=== PATIENT | male | born 1995 | race Caucasian/White ===

== ENCOUNTER 2017-07-08 15:44 | Inpatient (IN) | payer OTHER ==
[2017-07-08 17:43] VITALS: BMI 17.1
--- NOTE | 2017-07-08 19:08 | HP ---
COWS - Scale Resting Pulse: 0= [place] 80 or Below Sweatin= Chills/Flushing Restless Observation: 1= Difficult to Sit Still Pupil Size: 0= Normal to Room Light Bone or Joint Aches: 2= Severe Diffuse Aches Runny Nose/ Eye Tearin= Runny Nose/Eyes GI Upset > 30mins: 2= Nausea/Diarrhea Tremor Observation: 2= Slight Tremor Visible Yawning Observation: 1= 1-2x During Session Anxiety or Irritability: 2=Irritable/Anxious Goose Flesh Skin: 0=Smooth Skin COWS Score: 13 Admission ROS S - [facility] Chief Complaint: withdrawal sx Allergies/Adverse Reactions: Allergies Allergy/AdvReac Type Severity Reaction Status Date / Time No Known Allergies Allergy Verified 07/08/17 19:06 History of Present Illness: 22 years old male with long history of opiate nicotine dependence has asthma last episode 11 years old, chronic back pain treated with flexeril denies mental illness is admitted to detox Exam Limitations: No Limitations - Ebola screening Have you traveled outside of the country in the last 21 days: No Have you had contact with anyone from an Ebola affected area: No Have you been sick,other than usual withdrawal symptoms: No Do you have a fever: No - Review of Systems Constitutional: Changes in sleep, Weight Stable EENT: reports: No Symptoms Reported Respiratory: reports: No Symptoms reported Cardiac: reports: No Symptoms Reported GI: reports: Diarrhea, Nausea, Poor Fluid Intake, Abdominal cramping : reports: No Symptoms Reported Musculoskeletal: reports: Back Pain, Joint Pain, Muscle Pain, Neck Pain Integumentary: reports: Change in Color (inner elbows) Neuro: reports: Tremors Endocrine: reports: No Symptoms Reported Hematology: reports: No Symptoms Reported Psychiatric: reports: Judgement Intact, Mood/Affect Appropiate, Orientated x3 Other Systems: Reviewed and Negative Patient History - Patient Medical History Hx Anemia: No Hx Asthma: Yes (as chilc) Hx Chronic Obstructive Pulmonary Disease (COPD): No Hx Cancer: No Hx Cardiac Disorders: No Hx Congestive Heart Failure: No Hx Hypertension: No Hx Hypercholesterolemia: No Hx Pacemaker: No HX Cerebrovascular Accident: No Hx Seizures: No Hx Dementia: No Hx Diabetes: No Hx Gastrointestinal Disorders: No Hx Liver Disease: No Hx Genitourinary Disorders: No Hx Sexually Transmitted Disorders: No Hx Renal Disease (ESRD): No Hx Thyroid Disease: No Hx Human Immunodeficiency Virus (HIV): No Hx Hepatitis C: No Hx Depression: No Hx Suicide Attempt: No Hx Bipolar Disorder: No Hx Schizophrenia: No - Patient Surgical History Past Surgical History: No - PPD History Previous Implant?: Yes Documented Results: Negative w/o proof Implanted On Prior [facility] Admission?: No PPD to be Administered?: Yes - Smoking Cessation Smoking history: Current every day smoker Have you smoked in the past 12 months: Yes Aproximately how many cigarettes per day: 20 Cigars Per Day: 0 Hx Chewing Tobacco Use: No Initiated information on smoking cessation: Yes 'Breaking Loose' booklet given: 07/08/17 - Substance & Tx. History Hx Alcohol Use: No Hx Substance Use: Yes Substance Use Type: Marijuana, Opiates Hx Substance Use Treatment: Yes (04/2017 [facility]) - Substances Abused Heroin Route: Injection Frequency: Daily Amount used: 40 bags Age of first use: 19 Date of Last Use: 07/08/17 Marijuana/Hashish Route: Smoking Frequency: 3-6 times per week Amount used: 1 oz Age of first use: 15 Date of Last Use: 07/06/17 Family Disease History - Family Disease History Family Disease History: Other: Father (hiv) Admission Physical Exam [facility] - Vital Signs Vital Signs: Vital Signs - 24 hr 07/08/17 17:40 Temperature 97.4 F L Pulse Rate 69 Respiratory 20 Rate Blood Pressure 113/53 - Physical General Appearance: Yes: Appropriately Dressed, Mild Distress, Thin, Tremorous, Irritable, Sweating, Anxious HEENTM: Yes: Hearing grossly Normal, Normal ENT Inspection, Normocephalic, Normal Voice Respiratory: Yes: Chest Non-Tender, Lungs Clear, Normal Breath Sounds, No Respiratory Distress, No Accessory Muscle Use Neck: Yes: Supple, Trachea in good position Breast: Yes: Breasts Symetrical Cardiology: Yes: Regular Rhythm, Regular Rate, S1, S2 Abdominal: Yes: Non Tender, Soft, Increased Bowel Sounds Genitourinary: Yes: Within Normal Limits Back: Yes: Normal Inspection Musculoskeletal: Yes: full range of Motion, Gait Steady, Back pain Extremities: Yes: Normal Inspection, Normal Range of Motion, Non-Tender, Tremors Neurological: Yes: Fully Oriented, Alert, Motor Strength 5/5, Normal Mood/Affect , Normal Response Integumentary: Yes: Warm, Track Thao Lymphatic: Yes: Within Normal Limits - Diagnostic (1) Opioid dependence with withdrawal Current Visit: Yes Status: Acute (2) Cannabis dependence, uncomplicated Current Visit: Yes Status: Chronic (3) Nicotine dependence Current Visit: Yes Status: Acute Qualifiers: Nicotine product type: cigarettes Substance use status: in withdrawal Qualified Code(s): F17.213 - Nicotine dependence, cigarettes, with withdrawal (4) Chronic back pain Current Visit: Yes Status: Chronic Qualifiers: Back pain location: low back pain Back pain laterality: bilateral Sciatica presence: without sciatica Qualified Code(s): M54.5 - Low back pain; G89.29 - Other chronic pain (5) Chronic neck pain Current Visit: Yes Status: Chronic Cleared for Admission [facility] - Detox or Rehab [facility] Level of Care: Medically Managed Detox Regimen/Protocol: Methadone [facility] Breath Alcohol Content Breath Alcohol Content: 0 Urine Drug Screen - Results Drug Screen Negative: No Urine Drug Screen Results: THC-Marijuana, OPI-Opiates, MTD-Methadone
[2017-07-08] MEDS ORDERED: MAGNESIUM CITRATE 300 ML BOTTLE PO PRN (19:17)
[2017-07-08] MEDS ORDERED: guaiFENesin/D-METHORPHAN HB 10 ML UNIT-DOSE CUPS PO PRN (19:17)
[2017-07-08] MEDS ORDERED: IBUPROFEN 400 MG TABLET (FP) PO PRN (19:17)
[2017-07-08] MEDS ORDERED: METHADONE HCL 10 MG TABLET (FOR DETOX USE ONLY) PO ONE ×2 (19:17→23:00)
[2017-07-08] MEDS ORDERED: LOPERAMIDE HCL 2 MG CAPSULE PO PRN (19:17)
[2017-07-08] MEDS ORDERED: diphenhydrAMINE HCL 50 MG CAPSULE PO PRN (19:17)
[2017-07-08] MEDS ORDERED: ACETAMINOPHEN 325 MG TABLET (FP) PO PRN (19:17)
[2017-07-08] MEDS ORDERED: MENTHOL/PHENOL 1 EACH UD MM PRN (19:17)
[2017-07-08] MEDS ORDERED: MAG HYDROX/AL HYDROX/SIMETH 30 ML UNIT-DOSE CUP PO PRN (19:17)
[2017-07-08] MEDS ORDERED: NICOTINE POLACRILEX 4 MG GUM BUC PRN (19:17)
[2017-07-08] MEDS ORDERED: P-EPHED 60MG/TRIPROLIDI 2.5MG TABLET PO PRN (19:17)
[2017-07-08] MEDS ORDERED: MAGNESIUM HYDROX 2400MG/30ML ORAL SUSPENSION 30 ML CUP PO PRN (19:17)
[2017-07-08] MEDS ORDERED: METHADONE HCL 10 MG TABLET (FOR DETOX USE ONLY) ONE (21:32)
[2017-07-08] MEDS: diazePAM 5 MG TABLET PO PRN (21:36)
[2017-07-08] MEDS: THIAMINE HCL 100 MG TABLET (FP) PO SCH (21:37)
[2017-07-08] MEDS: CYCLOBENZAPRINE HCL 10 MG TABLET (FP) PO PRN (21:42)
[2017-07-08] MEDS: METHYL SALICYLATE/MENTHOL OINT 30 GM TUBE TP SCH (23:16)
[2017-07-09] MEDS ORDERED: METHADONE HCL 10 MG TABLET (FOR DETOX USE ONLY) PO ONE (10:00)
[2017-07-09 10:08] LABS: MCH 28.9 pg (25.7-33.7); MCHC 32.8 g/dl (32.0-35.9); MEAN CELL VOLUME 88.3 fl (80-96); MEAN PLT VOLUME 9.7 fl (7.5-11.1); PLATELET COUNT 185 K/MM3 (134-434); RDW 12.6 % (11.9-15.9); WHITE BLOOD COUNT 7.2 K/mm3 (4.0-10.0)
[2017-07-09 10:24] LABS: ALBUMIN 3.4 g/dl (3.4-5.0); ALK PHOS 90 U/L (45-117); ANION GAP 6 (8-16); BILIRUBIN,TOTAL 0.5 mg/dL (0.2-1.0); CALCIUM 8.9 mg/dL (8.5-10.1); CO2 32 mmol/L (21-32); CREATININE 0.6 mg/dL (0.7-1.3); GLUCOSE,RANDOM 84 mg/dL (74-106); SGOT/AST 14 U/L (15-37); SGPT/ALT 15 U/L (12-78); TOT PROT 6.2 g/dl (6.4-8.2)
[2017-07-09] MEDS: PRENATAL VITAMINS W/ FOLIC ACID TABLET (FP) PO SCH (10:53)
[2017-07-09] MEDS: METHYL SALICYLATE/MENTHOL OINT 30 GM TUBE TP SCH (10:53)
[2017-07-09] MEDS: NICOTINE 21 MG/24 HOURS TOPICAL PATCH TD SCH (10:54)
[2017-07-09] MEDS: diazePAM 5 MG TABLET PO PRN ×3 (10:55→20:40)
--- NOTE | 2017-07-09 11:15 | EKG ---
Test Reason : Blood Pressure : / mmHG Vent. Rate : 070 BPM Atrial Rate : 070 BPM P-R Int : 132 ms QRS Dur : 092 ms QT Int : 398 ms P-R-T Axes : 067 041 071 degrees QTc Int : 429 ms SINUS RHYTHM WITH MARKED SINUS ARRHYTHMIA OTHERWISE NORMAL ECG NO PREVIOUS ECGS AVAILABLE Confirmed by NELLY CARLOS, KOMAL ([id number]) on 07/09/2017 11:14:38 AM Referred By: Confirmed By:KOMAL VILLEGAS MD
--- NOTE | 2017-07-09 12:15 | PN ---
BHS COWS - Scale Resting Pulse: 1= [place] 81-100 Sweatin= Chills/Flushing Restless Observation: 3= Extraneous Movement Pupil Size: 2= Moderately Dilated Bone or Joint Aches: 4=Acute Joint/Muscle Pain Runny Nose/ Eye Tearin= Nasal Congestion GI Upset > 30mins: 1= Stomach Cramp Tremor Observation of Outstretched Hands: 4= Gross Tremor/Twitching Yawning Observation: 1= 1-2x During Session Anxiety or Irritability: 2=Irritable/Anxious Goose Flesh Skin: 0=Smooth Skin COWS Score: 20 S Progress Note (SOAP) Subjective: ANXIETY,IRRITABILITY,INTERMITTENT SLEEP. Objective: 07/09/17 12:15 Vital Signs Temperature 98.0 F 07/09/17 10:22 Pulse Rate 81 07/09/17 10:22 Respiratory Rate 20 07/09/17 10:22 Blood Pressure 121/69 07/09/17 10:22 O2 Sat by Pulse Oximetry (%) Laboratory Last Values WBC 7.2 K/mm3 (4.0-10.0) 07/09/17 07:00 RBC 4.44 M/mm3 (4.00-5.60) 07/09/17 07:00 Hgb 12.9 GM/dL (11.7-16.9) 07/09/17 07:00 Hct 39.3 % (35.4-49) 07/09/17 07:00 MCV 88.3 fl (80-96) 07/09/17 07:00 MCH 28.9 pg (25.7-33.7) 07/09/17 07:00 MCHC 32.8 g/dl (32.0-35.9) 07/09/17 07:00 RDW 12.6 % (11.9-15.9) 07/09/17 07:00 Plt Count 185 K/MM3 (134-434) 07/09/17 07:00 MPV 9.7 fl (7.5-11.1) 07/09/17 07:00 Sodium 143 mmol/L (136-145) 07/09/17 07:00 Potassium 4.2 mmol/L (3.5-5.1) 07/09/17 07:00 Chloride 105 mmol/L (98-107) 07/09/17 07:00 Carbon Dioxide 32 mmol/L (21-32) 07/09/17 07:00 Anion Gap 6 (8-16) L 07/09/17 07:00 BUN 11 mg/dL (7-18) 07/09/17 07:00 Creatinine 0.6 mg/dL (0.7-1.3) L 07/09/17 07:00 Creat Clearance w eGFR > 60 (>60) 07/09/17 07:00 Random Glucose 84 mg/dL (74-106) 07/09/17 07:00 Calcium 8.9 mg/dL (8.5-10.1) 07/09/17 07:00 Total Bilirubin 0.5 mg/dL (0.2-1.0) 07/09/17 07:00 AST 14 U/L (15-37) L 07/09/17 07:00 ALT 15 U/L (12-78) 07/09/17 07:00 Alkaline Phosphatase 90 U/L (45-117) 07/09/17 07:00 Total Protein 6.2 g/dl (6.4-8.2) L 07/09/17 07:00 Albumin 3.4 g/dl (3.4-5.0) 07/09/17 07:00 Assessment: 07/09/17 12:15 WITHDRAWAL SX Plan: CONTINUE DETOX
[2017-07-09] MEDS ORDERED: diphenhydrAMINE HCL 50 MG CAPSULE PO PRN (12:16)
[2017-07-09 17:16] LABS: URINE APPEARANCE SLCLOUDY; URINE BILIRUBIN NEGATIVE (NEGATIVE); URINE BLOOD NEGATIVE (NEGATIVE); URINE COLOR YELLOW; URINE GLUCOSE (UA) NEGATIVE (NEGATIVE); URINE KETONE NEGATIVE (NEGATIVE); URINE LEUK ESTERASE NEGATIVE (NEGATIVE); URINE NITRITE NEGATIVE (NEGATIVE); URINE PROTEIN NEGATIVE (NEGATIVE); URINE UROBILINOGEN NEGATIVE mg/dL (0.2-1.0)
[2017-07-09] MEDS: THIAMINE HCL 100 MG TABLET (FP) PO SCH (22:55)
[2017-07-10] MEDS: diazePAM 5 MG TABLET PO PRN ×4 (05:30→22:48)
[2017-07-10] MEDS ORDERED: METHADONE HCL 5 MG TABLET (FOR DETOX USE ONLY) PO ONE (10:00)
[2017-07-10] MEDS: PRENATAL VITAMINS W/ FOLIC ACID TABLET (FP) PO SCH (10:41)
[2017-07-10] MEDS: METHYL SALICYLATE/MENTHOL OINT 30 GM TUBE TP SCH (10:41)
[2017-07-10] MEDS: NICOTINE 21 MG/24 HOURS TOPICAL PATCH TD SCH (10:42)
--- NOTE | 2017-07-10 12:28 | PN ---
BHS COWS - Scale Resting Pulse: 0= [place] 80 or Below Sweatin= Chills/Flushing Restless Observation: 3= Extraneous Movement Pupil Size: 2= Moderately Dilated Bone or Joint Aches: 4=Acute Joint/Muscle Pain Runny Nose/ Eye Tearin= Nasal Congestion GI Upset > 30mins: 1= Stomach Cramp Tremor Observation of Outstretched Hands: 1= Tremor [place], Not Seen Yawning Observation: 1= 1-2x During Session Anxiety or Irritability: 2=Irritable/Anxious Goose Flesh Skin: 0=Smooth Skin COWS Score: 16 S Progress Note (SOAP) Subjective: ANXIETY,SWEATS,TREMORS,INTERMITTENT SLEEP Objective: 07/10/17 12:27 Vital Signs Temperature 97.7 F 07/10/17 10:40 Pulse Rate 77 07/10/17 10:40 Respiratory Rate 18 07/10/17 10:40 Blood Pressure 119/63 07/10/17 10:40 O2 Sat by Pulse Oximetry (%) Laboratory Last Values WBC 7.2 K/mm3 (4.0-10.0) 07/09/17 07:00 RBC 4.44 M/mm3 (4.00-5.60) 07/09/17 07:00 Hgb 12.9 GM/dL (11.7-16.9) 07/09/17 07:00 Hct 39.3 % (35.4-49) 07/09/17 07:00 MCV 88.3 fl (80-96) 07/09/17 07:00 MCH 28.9 pg (25.7-33.7) 07/09/17 07:00 MCHC 32.8 g/dl (32.0-35.9) 07/09/17 07:00 RDW 12.6 % (11.9-15.9) 07/09/17 07:00 Plt Count 185 K/MM3 (134-434) 07/09/17 07:00 MPV 9.7 fl (7.5-11.1) 07/09/17 07:00 Sodium 143 mmol/L (136-145) 07/09/17 07:00 Potassium 4.2 mmol/L (3.5-5.1) 07/09/17 07:00 Chloride 105 mmol/L (98-107) 07/09/17 07:00 Carbon Dioxide 32 mmol/L (21-32) 07/09/17 07:00 Anion Gap 6 (8-16) L 07/09/17 07:00 BUN 11 mg/dL (7-18) 07/09/17 07:00 Creatinine 0.6 mg/dL (0.7-1.3) L 07/09/17 07:00 Creat Clearance w eGFR > 60 (>60) 07/09/17 07:00 Random Glucose 84 mg/dL (74-106) 07/09/17 07:00 Calcium 8.9 mg/dL (8.5-10.1) 07/09/17 07:00 Total Bilirubin 0.5 mg/dL (0.2-1.0) 07/09/17 07:00 AST 14 U/L (15-37) L 07/09/17 07:00 ALT 15 U/L (12-78) 07/09/17 07:00 Alkaline Phosphatase 90 U/L (45-117) 07/09/17 07:00 Total Protein 6.2 g/dl (6.4-8.2) L 07/09/17 07:00 Albumin 3.4 g/dl (3.4-5.0) 07/09/17 07:00 Urine Color Yellow 07/09/17 14:22 Urine Appearance Slcloudy 07/09/17 14:22 Urine pH 8.0 (5.0-8.0) 07/09/17 14:22 Ur Specific [place] 1.020 (1.005-1.025) 07/09/17 14:22 Urine Protein Negative (NEGATIVE) 07/09/17 14:22 Urine Glucose (UA) Negative (NEGATIVE) 07/09/17 14:22 Urine Ketones Negative (NEGATIVE) 07/09/17 14:22 Urine Blood Negative (NEGATIVE) 07/09/17 14:22 Urine Nitrite Negative (NEGATIVE) 07/09/17 14:22 Urine Bilirubin Negative (NEGATIVE) 07/09/17 14:22 Urine Urobilinogen Negative mg/dL (0.2-1.0) 07/09/17 14:22 Ur Leukocyte Esterase Negative (NEGATIVE) 07/09/17 14:22 RPR Titer Nonreactive (NONREACTIVE) 07/09/17 07:00 Hepatitis C Antibody <0.1 s/co ratio (0.0-0.9) 07/08/17 07:00 Assessment: 07/10/17 12:27 WITHDRAWAL SX Plan: CONTINUE DETOX
[2017-07-10] MEDS: THIAMINE HCL 100 MG TABLET (FP) PO SCH (22:48)
[2017-07-11] MEDS: diazePAM 5 MG TABLET PO PRN ×3 (05:58→14:32)
[2017-07-11] MEDS ORDERED: METHADONE HCL 5 MG TABLET (FOR DETOX USE ONLY) PO ONE (10:00)
[2017-07-11] MEDS ORDERED: METHADONE HCL 10 MG TABLET (FOR DETOX USE ONLY) PO ONE (10:00)
[2017-07-11] MEDS: PRENATAL VITAMINS W/ FOLIC ACID TABLET (FP) PO SCH (10:21)
[2017-07-11] MEDS: METHYL SALICYLATE/MENTHOL OINT 30 GM TUBE TP SCH (10:22)
[2017-07-11] MEDS: NICOTINE 21 MG/24 HOURS TOPICAL PATCH TD SCH (10:22)
[2017-07-11] MEDS: CYCLOBENZAPRINE HCL 10 MG TABLET (FP) PO PRN (14:35)
--- NOTE | 2017-07-11 15:05 | PN ---
BHS Progress Note (SOAP) Subjective: Tremors. Objective: PT. A & O X 3, OBSERVED AMBULATING ON UNIT. NO ACUTE DISTRESS. 07/11/17 15:02 Vital Signs Temperature 98.4 F 07/11/17 09:34 Pulse Rate 84 07/11/17 09:34 Respiratory Rate 18 07/11/17 09:34 Blood Pressure 107/61 07/11/17 09:34 O2 Sat by Pulse Oximetry (%) Laboratory Tests 07/08/17 07/09/17 07/09/17 07:00 07:00 07:00 WBC 7.2 RBC 4.44 Hgb 12.9 Hct 39.3 MCV 88.3 MCH 28.9 MCHC 32.8 RDW 12.6 Plt Count 185 MPV 9.7 Sodium 143 Potassium 4.2 Chloride 105 Carbon Dioxide 32 Anion Gap 6 L BUN 11 Creatinine 0.6 L Creat Clearance w eGFR > 60 Random Glucose 84 Calcium 8.9 Total Bilirubin 0.5 AST 14 L ALT 15 Alkaline Phosphatase 90 Total Protein 6.2 L Albumin 3.4 Urine Color Urine Appearance Urine pH Ur Specific [place] Urine Protein Urine Glucose (UA) Urine Ketones Urine Blood Urine Nitrite Urine Bilirubin Urine Urobilinogen Ur Leukocyte Esterase RPR Titer Hepatitis C Antibody <0.1 07/09/17 07/09/17 07:00 14:22 WBC RBC Hgb Hct MCV MCH MCHC RDW Plt Count MPV Sodium Potassium Chloride Carbon Dioxide Anion Gap BUN Creatinine Creat Clearance w eGFR Random Glucose Calcium Total Bilirubin AST ALT Alkaline Phosphatase Total Protein Albumin Urine Color Yellow Urine Appearance Slcloudy Urine pH 8.0 Ur Specific [place] 1.020 Urine Protein Negative Urine Glucose (UA) Negative Urine Ketones Negative Urine Blood Negative Urine Nitrite Negative Urine Bilirubin Negative Urine Urobilinogen Negative Ur Leukocyte Esterase Negative RPR Titer Nonreactive Hepatitis C Antibody LABS NOTED. Assessment: 07/11/17 15:03 WITHDRAWAL SYMPTOMS. Plan: CONTINUE DETOX. PATIENT REPORTING THAT CURRENT DETOX SYMPTOMS ARE MINIMAL AND THAT HE FEELS WELL OVERALL. AT PATIENT'S REQUEST, DETOX REGIMEN (METHADONE) SCHEDULE CHANGED SO THAT PATIENT MAY BE DISCHARGED ON 07/12/2017.
[2017-07-11 15:37] VITALS: BP 111/66; PULSE 94; TEMP 97
--- NOTE | 2017-07-11 17:51 | PN ---
S Progress Note Note: called by nurse stated that patient did not want to complete treatment,seen by counselor,did not want to wait,signed release ama
--- NOTE | 2017-07-11 17:57 | DS ---
[facility] Detox Discharge Summary Admission Date: 07/08/17 Discharge Date: 07/11/17 - History Present History: Cannabis Dependence, Opioid Dependence Additional Comments: patient did not want to complete treatment,signed release ama,did not want to wait Pertinent Past History: chronic back pain chronic neck pain - Physical Exam Results Vital Signs: Vital Signs Temperature 97 F L 07/11/17 15:37 Pulse Rate 94 H 07/11/17 15:37 Respiratory Rate 18 07/11/17 15:37 Blood Pressure 111/66 07/11/17 15:37 O2 Sat by Pulse Oximetry (%) Pertinent Admission Physical Exam Findings: withdrawal symptom - Medication Discharge Medications: Ambulatory Orders NK [No Known Home Medication] 07/08/17 - Diagnosis (1) Nicotine dependence Current Visit: Yes Status: Acute Qualifiers: Nicotine product type: cigarettes Substance use status: in withdrawal Qualified Code(s): F17.213 - Nicotine dependence, cigarettes, with withdrawal (2) Opioid dependence with withdrawal Current Visit: Yes Status: Acute (3) Cannabis dependence, uncomplicated Current Visit: Yes Status: Chronic (4) Chronic back pain Current Visit: Yes Status: Chronic Qualifiers: Back pain location: low back pain Back pain laterality: bilateral Sciatica presence: without sciatica Qualified Code(s): M54.5 - Low back pain; G89.29 - Other chronic pain (5) Chronic neck pain Current Visit: Yes Status: Chronic - AMA Did Patient Leave Against Medical Advice: Yes
[2017-07-12] MEDS ORDERED: METHADONE HCL 5 MG TABLET (FOR DETOX USE ONLY) PO ONE (06:00)
[2017-07-12] MEDS ORDERED: METHADONE HCL 10 MG TABLET (FOR DETOX USE ONLY) PO ONE (10:00)
[2017-07-13] MEDS ORDERED: METHADONE HCL 5 MG TABLET (FOR DETOX USE ONLY) PO ONE (06:00)
== END 2017-07-11 17:20 | disposition left against medical advice (07) | DRG 770 ==
LOC: YASAS 15:44 → Y3N 19:27
PROVIDERS: ADMIT Internal Medicine; ATTEND Internal Medicine
PROC: HZ2ZZZZ Detoxification Services for Substance Abuse Treatment (ICD-10-PCS; principal; 2017-07-11)
DX: F11.23 Opioid dependence with withdrawal (principal); F12.20 Cannabis dependence, uncomplicated; F17.213 Nicotine dependence, cigarettes, with withdrawal; M54.5 Low back pain; M54.2 Cervicalgia; G89.29 Other chronic pain
CPT/HCPCS: 36415; 80053; 81003; 85027; 86593; 86803; 93005; 93010

== ENCOUNTER 2017-12-25 14:04 | Inpatient (IN) | payer OTHER ==
[2017-12-25 17:07] VITALS: BMI 19.5
--- NOTE | 2017-12-25 18:07 | HP ---
COWS - Scale Resting Pulse: 0= [place] 80 or Below Sweatin= Chills/Flushing Restless Observation: 1= Difficult to Sit Still Pupil Size: 1= Pupils >than Normal Bone or Joint Aches: 1= Mild Discomfort Runny Nose/ Eye Tearin= Nasal Congestion GI Upset > 30mins: 1= Stomach Cramp Tremor Observation: 2= Slight Tremor Visible Yawning Observation: 1= 1-2x During Session Anxiety or Irritability: 2=Irritable/Anxious Goose Flesh Skin: 3=Piloe[place] COWS Score: 14 CIWA Score - CIWA Score Nausea/Vomitin Muscle Tremors: 3 Anxiety: 3 Agitation: 3 Paroxysmal Sweats: 3 Orientation: 0-Oriented Tacttile Disturbances: 0-None Auditory Disturbances: 0-None Visual Disturbances: 0-None Headache: 0-None Present CIWA-Ar Total Score: 15 Admission ROS S - HPI Chief Complaint: heorin and benzodiazepine withdrawal sx Allergies/Adverse Reactions: Allergies Allergy/AdvReac Type Severity Reaction Status Date / Time No Known Allergies Allergy Verified 12/25/17 17:48 History of Present Illness: 22 yo m 2nd admission for detox from heroin and benzodiazepines last used this am, smokes 1PPD PMHX no suicidal ideation at this time, anxiety, depression and insomnia, thirsty reported symptoms Exam Limitations: No Limitations - Ebola screening Have you traveled outside of the country in the last 21 days: No (N) Have you had contact with anyone from an Ebola affected area: No Have you been sick,other than usual withdrawal symptoms: No Do you have a fever: No - Review of Systems Constitutional: Chills, Diaphoresis, Night Sweats, Changes in sleep, Weight Stable EENT: reports: Tearing, Nose Congestion Respiratory: reports: No Symptoms reported Cardiac: reports: No Symptoms Reported GI: reports: Diarrhea, Nausea, Poor Appetite, Poor Fluid Intake, Vomiting, Indigestion, Abdominal cramping : reports: No Symptoms Reported Musculoskeletal: reports: Back Pain, Joint Pain, Muscle Pain, Muscle Weakness Integumentary: reports: Flushing, Sweating Neuro: reports: Tremors Endocrine: reports: Increased Thirst Hematology: reports: No Symptoms Reported Psychiatric: reports: Judgement Intact, Mood/Affect Appropiate, Orientated x3, Anxious, Depressed Other Systems: Reviewed and Negative Patient History - Patient Medical History Hx Anemia: No Hx Asthma: No Hx Chronic Obstructive Pulmonary Disease (COPD): No Hx Cancer: No Hx Cardiac Disorders: No Hx Congestive Heart Failure: No Hx Hypertension: No Hx Hypercholesterolemia: No Hx Pacemaker: No HX Cerebrovascular Accident: No Hx Seizures: No Hx Dementia: No Hx Diabetes: No Hx Gastrointestinal Disorders: No Hx Liver Disease: No Hx Genitourinary Disorders: No Hx Sexually Transmitted Disorders: No Hx Renal Disease (ESRD): No Hx Thyroid Disease: No Hx Human Immunodeficiency Virus (HIV): No Hx Hepatitis C: No Hx Depression: Yes (anxiety, insomnia when he deoes not use, self medicates with street drugs) Hx Suicide Attempt: No (no suicidal ideation) Hx Bipolar Disorder: No Hx Schizophrenia: No - Patient Surgical History Past Surgical History: No Hx Neurologic Surgery: No Hx Cataract Extraction: No Hx Cardiac Surgery: No Hx Lung Surgery: No Hx Breast Surgery: No Hx Breast Biopsy: No Hx Abdominal Surgery: No Hx Appendectomy: No Hx Cholecystectomy: No Hx Genitourinary Surgery: No Hx Section: No Hx Orthopedic Surgery: No Hx Hysterectomy: No Anesthesia Reaction: No - PPD History Previous Implant?: Yes Documented Results: Negative w/proof Date: 07/10/17 PPD to be Administered?: No - Reproductive History Patient is a Female of Child Bearing Age (11 -55 yrs old): No Patient : No - Smoking Cessation Smoking history: Current every day smoker Have you smoked in the past 12 months: Yes Aproximately how many cigarettes per day: 20 Cigars Per Day: 0 Hx Chewing Tobacco Use: No Initiated information on smoking cessation: Yes 'Breaking Loose' booklet given: 12/25/17 - Substance & Tx. History Hx Alcohol Use: No Hx Substance Use: Yes Substance Use Type: Heroin, Marijuana, Opiates, Prescribed, Tranquilizers Hx Substance Use Treatment: Yes ([facility]) - Substances Abused Heroin Route: Injection Frequency: Daily Amount used: 20 bags Age of first use: 19 Date of Last Use: 12/25/17 Benzodiazepine (Klonopin) Route: Oral Frequency: Daily Amount used: 8mg Age of first use: 19 Date of Last Use: 12/25/17 Marijuana/Hashish Route: Smoking Frequency: Daily Amount used: 2 joints Age of first use: 16 Date of Last Use: 12/24/17 Family Disease History - Family Disease History Family Disease History: Other: Father (hiv) Admission Physical Exam BHS - Vital Signs Vital Signs: Vital Signs - 24 hr 12/25/17 17:03 Temperature 97.8 F Pulse Rate 80 Respiratory 18 Rate Blood Pressure 120/69 - Physical General Appearance: Yes: No Apparent Distress, Nourished, Appropriately Dressed , Disheveled, Mild Distress, Thin, Tremorous, Irritable, Sweating, Anxious HEENTM: Yes: EOMI, Hearing grossly Normal, Normocephalic, Normal Voice, MALIKA, Pharynx Normal, Nasal Congestion, Rhinorrhea Respiratory: Yes: Within Normal Limits, Chest Non-Tender, Lungs Clear, Normal Breath Sounds, No Respiratory Distress, No Accessory Muscle Use Neck: Yes: Within Normal Limits, No masses,lesions,Nodules, Supple, Trachea in good position Breast: Yes: Breast Exam Deferred Cardiology: Yes: Within Normal Limits, Regular Rhythm, Regular Rate, S1, S2 Abdominal: Yes: Within Normal Limits, Normal Bowel Sounds, Non Tender, Flat, Soft, Increased Bowel Sounds Genitourinary: Yes: Within Normal Limits Back: Yes: Muscle Spasm Extremities: Yes: Normal Capillary Refill, Normal Inspection, Normal Range of Motion, Tremors Neurological: Yes: rn faculty II-XII NML intact, Fully Oriented, Alert, Motor Strength 5/5, Normal Response, Depressed Affect Integumentary: Yes: Normal Color, Warm, Diaphoresis, Moist, Track Thao ( ifection or abscessnoted) Lymphatic: Yes: Within Normal Limits - Addiitonal Findings: withdrawal sx - Diagnostic (1) Sedative, hypnotic or anxiolytic dependence with withdrawal, uncomplicated Current Visit: Yes Status: Acute (2) Nicotine dependence Current Visit: No Status: Acute Qualifiers: Nicotine product type: cigarettes Substance use status: in withdrawal Qualified Code(s): F17.213 - Nicotine dependence, cigarettes, with withdrawal (3) Opioid dependence with withdrawal Current Visit: No Status: Acute (4) Cannabis dependence, uncomplicated Current Visit: No Status: Chronic (5) Chronic back pain Current Visit: No Status: Chronic Qualifiers: Back pain location: low back pain Back pain laterality: bilateral Sciatica presence: without sciatica Qualified Code(s): M54.5 - Low back pain; G89.29 - Other chronic pain; G89.29 - Other chronic pain (6) Chronic neck pain Current Visit: No Status: Chronic (7) Dehydration Current Visit: Yes Status: Acute (8) Depression Current Visit: Yes Status: Acute Cleared for Admission [facility] - Detox or Rehab [facility] Level of Care: Medically Managed Detox Regimen/Protocol: Methadone/Valium [facility] Breath Alcohol Content Breath Alcohol Content: 0 Urine Drug Screen - Results Drug Screen Negative: No Urine Drug Screen Results: THC-Marijuana, OPI-Opiates, BZO-Benzodiazepines, TCA- Tricyclic Antidepress, OXY-Oxycodone
[2017-12-25] MEDS ORDERED: IBUPROFEN 400 MG TABLET (FP) PO PRN (18:08)
[2017-12-25] MEDS ORDERED: MAG HYDROX/AL HYDROX/SIMETH 30 ML UNIT-DOSE CUP PO PRN (18:08)
[2017-12-25] MEDS ORDERED: LOPERAMIDE HCL 2 MG CAPSULE PO PRN (18:08)
[2017-12-25] MEDS ORDERED: P-EPHED 60MG/TRIPROLIDI 2.5MG TABLET PO PRN (18:08)
[2017-12-25] MEDS ORDERED: ACETAMINOPHEN 325 MG TABLET (FP) PO PRN (18:08)
[2017-12-25] MEDS ORDERED: hydrOXYzine PAMOATE 50 MG CAPSULE (FP) PO PRN (18:08)
[2017-12-25] MEDS ORDERED: MENTHOL/PHENOL 1 EACH UD MM PRN (18:08)
[2017-12-25] MEDS ORDERED: guaiFENesin/D-METHORPHAN HB 10 ML UNIT-DOSE CUPS PO PRN (18:08)
[2017-12-25] MEDS ORDERED: MAGNESIUM CITRATE 300 ML BOTTLE PO PRN (18:08)
[2017-12-25] MEDS ORDERED: MAGNESIUM HYDROX 2400MG/30ML ORAL SUSPENSION 30 ML CUP PO PRN (18:08)
[2017-12-25] MEDS ORDERED: NICOTINE POLACRILEX 4 MG GUM BC PRN (18:08)
[2017-12-25] MEDS ORDERED: ONDANSETRON *ODT* 4 MG TABLET SL PRN (18:13)
[2017-12-25] MEDS ORDERED: diazePAM 5 MG TABLET PO ONE (19:00)
[2017-12-25] MEDS ORDERED: ONDANSETRON *ODT* 4 MG TABLET SL ONE (19:00)
[2017-12-25] MEDS ORDERED: METHADONE HCL 10 MG TABLET (FOR DETOX USE ONLY) PO ONE ×2 (19:00→23:00)
[2017-12-25] MEDS: NICOTINE 21 MG/24 HOURS TOPICAL PATCH TD SCH (20:07)
[2017-12-25] MEDS: THIAMINE HCL 100 MG TABLET (FP) PO SCH (22:09)
[2017-12-25] MEDS: CYCLOBENZAPRINE HCL 10 MG TABLET (FP) PO PRN (22:09)
[2017-12-25] MEDS: diazePAM 5 MG TABLET PO SCH (22:09)
[2017-12-25 22:20] LABS: URINE APPEARANCE CLEAR; URINE BILIRUBIN NEGATIVE (NEGATIVE); URINE BLOOD NEGATIVE (NEGATIVE); URINE COLOR YELLOW; URINE GLUCOSE (UA) NEGATIVE (NEGATIVE); URINE KETONE NEGATIVE (NEGATIVE); URINE LEUK ESTERASE NEGATIVE (NEGATIVE); URINE NITRITE NEGATIVE (NEGATIVE); URINE PROTEIN NEGATIVE (NEGATIVE); URINE UROBILINOGEN 4.0 E.U/dl mg/dL (0.2-1.0)
[2017-12-26] MEDS: diazePAM 5 MG TABLET PO SCH ×3 (05:54→22:03)
[2017-12-26] MEDS: diazePAM 5 MG TABLET PO PRN (08:20)
[2017-12-26] MEDS ORDERED: METHADONE HCL 10 MG TABLET (FOR DETOX USE ONLY) PO SCH (10:00)
[2017-12-26] MEDS: PRENATAL VITAMINS W/ FOLIC ACID TABLET (FP) PO SCH (10:04)
[2017-12-26] MEDS: CYCLOBENZAPRINE HCL 10 MG TABLET (FP) PO PRN ×2 (10:06→22:03)
[2017-12-26 10:25] LABS: HEMATOCRIT 40.1 % (35.4-49); MCH 28.3 pg (25.7-33.7); MCHC 32.5 g/dl (32.0-35.9); MEAN CELL VOLUME 86.9 fl (80-96); MEAN PLT VOLUME 8.8 fl (7.5-11.1); PLATELET COUNT 198 K/MM3 (134-434); RBC 4.61 M/mm3 (4.00-5.60); RDW 13.7 % (11.9-15.9); WHITE BLOOD COUNT 7.2 K/mm3 (4.0-10.0)
[2017-12-26 10:37] LABS: CHLORIDE 103 mmol/L (98-107); POTASSIUM 4.2 mmol/L (3.5-5.1); SODIUM 142 mmol/L (136-145)
[2017-12-26 10:46] LABS: ALBUMIN 3.7 g/dl (3.4-5.0); ALK PHOS 92 U/L (45-117); ANION GAP 5 (8-16); BILIRUBIN,TOTAL 0.2 mg/dL (0.2-1.0); BLOOD UREA NITROGEN 10 mg/dL (7-18); CALCIUM 9.1 mg/dL (8.5-10.1); CO2 34 mmol/L (21-32); CREATININE 0.7 mg/dL (0.7-1.3); GLUCOSE,RANDOM 97 mg/dL (74-106); SGOT/AST 17 U/L (15-37); SGPT/ALT 17 U/L (12-78); TOT PROT 6.6 g/dl (6.4-8.2)
[2017-12-26] MEDS: NICOTINE 21 MG/24 HOURS TOPICAL PATCH TD SCH (11:03)
--- NOTE | 2017-12-26 12:33 | PN ---
[facility] CIWA - CIWA Score Nausea/Vomitin-No Nausea/No Vomiting Muscle Tremors: 4-Moderate,w/Arms Extend Anxiety: 4-Mod. Anxious/Guarded Agitation: 4-Moderately Restless Paroxysmal Sweats: 3 Orientation: 0-Oriented Tacttile Disturbances: 1-Very Mild Itch/Numbness Auditory Disturbances: 0-None Visual Disturbances: 0-None Headache: 0-None Present CIWA-Ar Total Score: 16 S COWS - Scale Resting Pulse: 0= [place] 80 or Below Sweatin= Chills/Flushing Restless Observation: 3= Extraneous Movement Pupil Size: 0= Normal to Room Light Bone or Joint Aches: 2= Severe Diffuse Aches Runny Nose/ Eye Tearin= Runny Nose/Eyes GI Upset > 30mins: 2= Nausea/Diarrhea Tremor Observation of Outstretched Hands: 2= Slight Tremor Visible Yawning Observation: 0= None Anxiety or Irritability: 2=Irritable/Anxious Goose Flesh Skin: 0=Smooth Skin COWS Score: 14 [facility] Progress Note (SOAP) Subjective: Anxious, restless, sweating Objective: 12/26/17 12:32 Last Vital Signs Temp Pulse Resp BP Pulse Ox 96.8 F L 73 18 96/60 12/26/17 09:06 12/26/17 09:06 12/26/17 09:06 12/26/17 09:06 Laboratory Tests 12/25/17 12/26/17 12/26/17 20:06 08:00 08:00 WBC 7.2 RBC 4.61 Hgb 13.0 Hct 40.1 MCV 86.9 MCH 28.3 MCHC 32.5 RDW 13.7 Plt Count 198 MPV 8.8 Sodium 142 Potassium 4.2 Chloride 103 Carbon Dioxide 34 H Anion Gap 5 L BUN 10 Creatinine 0.7 Creat Clearance w eGFR > 60 Random Glucose 97 Calcium 9.1 Total Bilirubin 0.2 D AST 17 D ALT 17 Alkaline Phosphatase 92 Total Protein 6.6 Albumin 3.7 Urine Color Yellow Urine Appearance Clear Urine pH 6.0 D Ur Specific [place] 1.016 Urine Protein Negative Urine Glucose (UA) Negative Urine Ketones Negative Urine Blood Negative Urine Nitrite Negative Urine Bilirubin Negative Urine Urobilinogen 4.0 e.u/dl Ur Leukocyte Esterase Negative Labs noted Assessment: 02/10/18 12:32 Withdrawal symptoms Plan: Continue detox Encouraged PO hydration (water)
--- NOTE | 2017-12-26 13:10 | CONSULT ---
[facility] Psychiatric Consult - Data Date of interview: 12/26/17 Admission source: [facility] Identifying data: Readmission to [facility] for this [place]-born male seeking detox treatment on for heroin,benzodiazepine and cannabis dependence.Patient is single,a father of one (three day-old son), domiciled,currently unemployed,out of school and supported by parents. Substance Abuse History: Discussed in this session.Mr New confirmed a long standing dependence on clonazepm,heroin and marihuana.Seee current [facility] report for details.Smoking history: Current every day smoker. Have you smoked in the past 12 months: Yes. Aproximately how many cigarettes per day: 20. Cigars Per Day: 0. Hx Chewing Tobacco Use: No. Initiated information on smoking cessation: Yes. 'Breaking Loose' booklet given: 12/25/17. - Substance & Tx. History. Hx Alcohol Use: No. Hx Substance Use: Yes. Substance Use Type : Heroin, Marijuana, Opiates, Prescribed, Tranquilizers. Hx Substance Use Treatment: Yes ( [facility]). - Substances Abused. Heroin. Route: Injection. Frequency: Daily. Amount used: 20 bags. Age of first use: 19. Date of Last Use: 12/25/17. Benzodiazepine (Klonopin). Route: Oral. Frequency: Daily. Amount used: 8mg. Age of first use: 19. Date of Last Use: 12/25/17. Marijuana/Hashish. Route: Smoking. Frequency: Daily. Amount used: 2 joints. Age of first use: 16. Date of Last Use: 12/24/17 Medical History: Patient endorses good general health. Psychiatric History: Patient denies. Physical/Sexual Abuse/Trauma History: Patient denies. Additional Comment: Urine Drug Screen Results: THC-Marijuana, OPI-Opiates, BZO- Benzodiazepines, TCA-Tricyclic Antidepressant, OXY-Oxycodone.Noted. Mental Status Exam - Mental Status Exam Alert and Oriented to: Time, Place, Person Cognitive Function: Good Patient Appearance: Well Groomed (appears much younger than stated age) Mood: Nervous, Anxious, Hopeful Affect: Mood Congruent Patient Behavior: Fatigued, Appropriate, Cooperative Speech Pattern: Clear, Appropriate Voice Loudness: Normal Thought Process: Intact, Goal Oriented Thought Disorder: Not Present Hallucinations: Denies Suicidal Ideation: Denies Homicidal Ideation: Denies Insight/Judgement: Poor Sleep: Well Appetite: Good Muscle strength/Tone: Normal Gait/Station: Normal Psychiatric Findings - Problem List ([place] 1, 2,3) (1) Opioid dependence with withdrawal Status: Acute (2) Cannabis dependence, uncomplicated Status: Acute (3) Sedative, hypnotic or anxiolytic dependence with withdrawal, uncomplicated Status: Acute (4) Nicotine dependence Status: Acute Qualifiers: Nicotine product type: cigarettes Substance use status: in withdrawal Qualified Code(s): F17.213 - Nicotine dependence, cigarettes, with withdrawal (5) Substance induced mood disorder Status: Suspected - Initial Treatment Plan Initial Treatment Plan: Psychoeducation and support provided in this session.Detoxification in effect.Patient is encouraged to attend groups and daily unit activities.Oriented to unit rules and regulations.Encouraged to commit to sobriety after discharge and enroll in a vocational training program for acquisition of skills that will be useful for financial independence and self-esteem.Noted as receptive to teaching and active participant in the session.Observation.
--- NOTE | 2017-12-26 15:59 | EKG ---
Test Reason : Blood Pressure : / mmHG Vent. Rate : 069 BPM Atrial Rate : 069 BPM P-R Int : 132 ms QRS Dur : 096 ms QT Int : 400 ms P-R-T Axes : 056 029 076 degrees QTc Int : 428 ms NORMAL SINUS RHYTHM POSSIBLE LEFT ATRIAL ENLARGEMENT BORDERLINE ECG WHEN COMPARED WITH ECG OF 08-JUL-2017 20:30, NO SIGNIFICANT CHANGE WAS FOUND Confirmed by GEOREGS DALTON MD ([id number]) on 12/26/2017 3:59:02 PM Referred By: Confirmed By:GEORGES DALTON MD
[2017-12-26] MEDS: THIAMINE HCL 100 MG TABLET (FP) PO SCH (22:03)
[2017-12-27] MEDS: diazePAM 5 MG TABLET PO PRN ×2 (03:17→07:27)
[2017-12-27] MEDS ORDERED: diazePAM 5 MG TABLET PO SCH (10:00)
[2017-12-27] MEDS ORDERED: METHADONE HCL 5 MG TABLET (FOR DETOX USE ONLY) PO SCH (10:00)
[2017-12-27] MEDS: NICOTINE 21 MG/24 HOURS TOPICAL PATCH TD SCH (10:06)
[2017-12-27] MEDS: PRENATAL VITAMINS W/ FOLIC ACID TABLET (FP) PO SCH (10:06)
[2017-12-27 13:36] VITALS: BP 104/66; PULSE 79; TEMP 98.6
--- NOTE | 2017-12-27 19:41 | PN ---
[facility] CIWA - CIWA Score Nausea/Vomitin Muscle Tremors: 3 Anxiety: 3 Agitation: 4-Moderately Restless Paroxysmal Sweats: 1-Minimal Palms Moist Orientation: 0-Oriented Tacttile Disturbances: 0-None Auditory Disturbances: 0-None Visual Disturbances: 0-None Headache: 0-None Present CIWA-Ar Total Score: 14 [facility] COWS - Scale Resting Pulse: 1= [place] 81-100 Sweatin=Flushed/Facial Moisture Restless Observation: 3= Extraneous Movement Pupil Size: 0= Normal to Room Light Bone or Joint Aches: 1= Mild Discomfort Runny Nose/ Eye Tearin= Nasal Congestion GI Upset > 30mins: 1= Stomach Cramp Tremor Observation of Outstretched Hands: 2= Slight Tremor Visible Yawning Observation: 0= None Anxiety or Irritability: 0= None Goose Flesh Skin: 0=Smooth Skin COWS Score: 11 [facility] Progress Note (SOAP) Subjective: Anxious sleep disturbance Objective: 12/27/17 19:39 anxious Ambulating within unit Vital Signs Temperature 98.6 F 12/27/17 13:35 Pulse Rate 79 12/27/17 13:35 Respiratory Rate 18 12/27/17 13:35 Blood Pressure 104/66 12/27/17 13:35 O2 Sat by Pulse Oximetry (%) Laboratory Last Values WBC 7.2 K/mm3 (4.0-10.0) 12/26/17 08:00 RBC 4.61 M/mm3 (4.00-5.60) 12/26/17 08:00 Hgb 13.0 GM/dL (11.7-16.9) 12/26/17 08:00 Hct 40.1 % (35.4-49) 12/26/17 08:00 MCV 86.9 fl (80-96) 12/26/17 08:00 MCH 28.3 pg (25.7-33.7) 12/26/17 08:00 MCHC 32.5 g/dl (32.0-35.9) 12/26/17 08:00 RDW 13.7 % (11.9-15.9) 12/26/17 08:00 Plt Count 198 K/MM3 (134-434) 12/26/17 08:00 MPV 8.8 fl (7.5-11.1) 12/26/17 08:00 Sodium 142 mmol/L (136-145) 12/26/17 08:00 Potassium 4.2 mmol/L (3.5-5.1) 12/26/17 08:00 Chloride 103 mmol/L (98-107) 12/26/17 08:00 Carbon Dioxide 34 mmol/L (21-32) H 12/26/17 08:00 Anion Gap 5 (8-16) L 12/26/17 08:00 BUN 10 mg/dL (7-18) 12/26/17 08:00 Creatinine 0.7 mg/dL (0.7-1.3) 12/26/17 08:00 Creat Clearance w eGFR > 60 (>60) 12/26/17 08:00 Random Glucose 97 mg/dL (74-106) 12/26/17 08:00 Calcium 9.1 mg/dL (8.5-10.1) 12/26/17 08:00 Total Bilirubin 0.2 mg/dL (0.2-1.0) D 12/26/17 08:00 AST 17 U/L (15-37) D 12/26/17 08:00 ALT 17 U/L (12-78) 12/26/17 08:00 Alkaline Phosphatase 92 U/L (45-117) 12/26/17 08:00 Total Protein 6.6 g/dl (6.4-8.2) 12/26/17 08:00 Albumin 3.7 g/dl (3.4-5.0) 12/26/17 08:00 Urine Color Yellow 12/25/17 20:06 Urine Appearance Clear 12/25/17 20:06 Urine pH 6.0 (5.0-8.0) D 12/25/17 20:06 Ur Specific [place] 1.016 (1.001-1.035) 12/25/17 20:06 Urine Protein Negative (NEGATIVE) 12/25/17 20:06 Urine Glucose (UA) Negative (NEGATIVE) 12/25/17 20:06 Urine Ketones Negative (NEGATIVE) 12/25/17 20:06 Urine Blood Negative (NEGATIVE) 12/25/17 20:06 Urine Nitrite Negative (NEGATIVE) 12/25/17 20:06 Urine Bilirubin Negative (NEGATIVE) 12/25/17 20:06 Urine Urobilinogen 4.0 e.u/dl mg/dL (0.2-1.0) 12/25/17 20:06 Ur Leukocyte Esterase Negative (NEGATIVE) 12/25/17 20:06 RPR Titer Nonreactive (NONREACTIVE) 12/26/17 08:00 labs noted Assessment: 12/27/17 19:40 withdrawal sx Plan: continue detox
--- NOTE | 2017-12-27 19:44 | DS ---
[facility] Detox Discharge Summary Admission Date: 12/25/17 Discharge Date: 12/27/17 - Physical Exam Results Vital Signs: Vital Signs Temperature 98.6 F 12/27/17 13:35 Pulse Rate 79 12/27/17 13:35 Respiratory Rate 18 12/27/17 13:35 Blood Pressure 104/66 12/27/17 13:35 O2 Sat by Pulse Oximetry (%) - Medication Discharge Medications: Ambulatory Orders NK [No Known Home Medication] 07/08/17 - Diagnosis (1) Sedative, hypnotic or anxiolytic dependence with withdrawal, uncomplicated Status: Acute (2) Opioid dependence with withdrawal Status: Acute (3) Cannabis dependence, uncomplicated Status: Acute (4) Nicotine dependence Status: Acute Qualifiers: Nicotine product type: cigarettes Substance use status: in withdrawal Qualified Code(s): F17.213 - Nicotine dependence, cigarettes, with withdrawal (5) Depression Status: Chronic (6) Substance induced mood disorder Status: Suspected - AMA Did Patient Leave Against Medical Advice: Yes
[2017-12-29] MEDS ORDERED: METHADONE HCL 10 MG TABLET (FOR DETOX USE ONLY) PO SCH (10:00)
[2017-12-29] MEDS ORDERED: diazePAM 5 MG TABLET PO SCH (10:00)
[2017-12-30] MEDS ORDERED: METHADONE HCL 5 MG TABLET (FOR DETOX USE ONLY) PO SCH (06:00)
== END 2017-12-27 12:45 | disposition left against medical advice (07) | DRG 770 ==
LOC: YASAS 14:04 → Y3N 17:56
PROVIDERS: ADMIT Internal Medicine; ATTEND Internal Medicine
PROC: HZ2ZZZZ Detoxification Services for Substance Abuse Treatment (ICD-10-PCS; principal; 2017-12-25)
DX: F11.23 Opioid dependence with withdrawal (principal); F13.230 Sedative, hypnotic or anxiolytic dependence with withdrawal, uncomplicated; F12.20 Cannabis dependence, uncomplicated; F17.213 Nicotine dependence, cigarettes, with withdrawal; F32.9 Major depressive disorder, single episode, unspecified; F19.24 Other psychoactive substance dependence with psychoactive substance-induced mood disorder; M54.5 Low back pain; M54.2 Cervicalgia; G89.29 Other chronic pain; E86.0 Dehydration
CPT/HCPCS: 36415; 80053; 81003; 85027; 86593; 93005; 93010